=== PATIENT | male | born 2000 | race African-American/Black ===

== ENCOUNTER 2020-12-16 23:35 | Emergency (ER) | payer SELFPAY ==
[~2020-12-16] VITALS: Ht 182.9 cm; Wt 78.0 kg
[2020-12-17] MEDS ORDERED: ONDANSETRON HCL 4MG/2ML INJ IV ONE
[2020-12-17] MEDS ORDERED: MORPHINE SULFATE 4 MG/ML CPJ (NOT FOR IM USE) IV ONE
[2020-12-17] MEDS ORDERED: PROPOFOL 200MG/20ML VIAL IV ONE
[2020-12-17] MEDS ORDERED: KETAMINE HCL 50 MG/ML 10ML IV ONE (01:45)
[2020-12-17] MEDS ORDERED: IBUP-2029 MT (04:23)
[2020-12-17 05:27] VITALS: BP 132/72
== END 2020-12-17 05:35 | disposition home or self-care (01) ==
LOC: ER 23:35
DX: S52.125A Nondisplaced fracture of head of left radius, initial encounter for closed fracture (principal); S53.005A Unspecified dislocation of left radial head, initial encounter; Z79.899 Other long term (current) drug therapy; W01.0XXA Fall on same level from slipping, tripping and stumbling without subsequent striking against object, initial encounter; Y93.89 Activity, other specified; Y92.89 Other specified places as the place of occurrence of the external cause; Y99.8 Other external cause status
CPT/HCPCS: 24600; 73060; 73070; 73090; 96374; 96375; 99152; 99285; J2270; J2405; J2704; J3490; A4565